=== PATIENT | female | born 1955 | race Caucasian/White ===

== ENCOUNTER → 2017-02-19 | Outpatient (CLI) | payer BC ==
--- NOTE | 2017-02-19 14:29 | MAMMOGRAPHY REPORT ---
BILATERAL DIGITAL DIAGNOSTIC MAMMOGRAM TOMOSYNTHESIS WITH CAD AND TARGETED BILATERAL ULTRASOUND: 2017 CLINICAL HISTORY: 61-year-old woman presents with a tender palpable lump in the 12:30 periareolar rig ht breast, which she describes as a small pea. Also overdue for annual bilateral screening mammograp hy. TECHNIQUE: Bilateral breast tomosynthesis in addition to standard 2D mammography was performed. Spot compression tomosynthesis left cc and MLO views were also obtained. Current study was also evaluate d with a Computer Aided Detection (CAD) system. COMPARISON: Comparison is made to exams dated: 02/22/2015 mammogram, 12/22/2013 ultrasound, 4 mammogram, 12/17/2013 mammogram, 10/09/2012 mammogram, and 06/01/2009 ultrasound - [facility]. BREAST COMPOSITION: There are scattered areas of fibroglandular density in both breasts. FINDINGS: A triangular palpable marker overlies the 12:30 anterior right breast, denoting the small l ump, smaller than AP, pointed out by the patient. No obvious new mammographic mass, asymmetry, area of distortion or calcifications are identified. No other new suspicious findings are identified in t he right breast. There is a subtle focal asymmetry in the retroareolar posterior left breast. On the 2-D views there is subtle focal asymmetry appears similar dating back to 2007, but there is possible associated archi tectural distortion on the corresponding tomosynthesis images. Therefore additional spot compression tomosynthesis views of the left breast were obtained which demonstrate persistent architectural dist ortion involving this 9 mm focal asymmetry in the central versus posterior retroareolar left breast. Further characterization with ultrasound was performed. No other suspicious masses, asymmetries, ar eas of distortion or other abnormalities are seen in the left breast. Targeted ultrasound was performed in the area of palpable lump pointed out by the patient, in the 12: 30 periareolar right breast, and in the 12:00 through 6:00 including the retroareolar left breast. I n the area of palpable concern pointed out by the patient in the 12:30 periareolar right breast, on p alpation, there is a tiny 4 mm mobile mass that appears superficial. On ultrasound, there is a small hypoechoic oval lesion with slight thickening of the dermis in the area of concern measuring 3.7 mm. This could represent an early forming or resolving epidermal inclusion cyst. No punctate and is id entified extending to the skin surface. There is no suspicious lesion deeper within the breast paren chyma. Throughout the left breast 11:00, 12:00, 1:00, retroareolar and 5:00 through 7:00 axes, no discrete s olid or cystic mass is identified. No definite sonographic correlate for the mammographic asymmetry with associated architectural distortion. This finding remains indeterminate and further characteriz ation with a stereotactic tomosynthesis guided biopsy is recommended. IMPRESSION: ACR BI-RADS CATEGORY 4: SUSPICIOUS, TARGETED ULTRASOUND ACR BI-RADS CATEGORY 4: SUSPICIO US 1. There is a possible early versus resolving epidermal inclusion cyst measuring 3.7 mm in the area of palpable painful concern in the 12:30 periareolar right breast. Given that this finding does not meet the sonographic criteria for a benign epidermal inclusion cyst, follow-up at resolution or in ap proximately 6 months is recommended. Also recommend continuation of conservative management with NSA IDs and hot compresses. 2. There is a 9 mm focal asymmetry with associated architectural distortion in the posterior retroar eolar versus central left breast, without sonographic correlate identified. Although the 2-D appeara nce appears somewhat similar dating back to 2007 suggesting this could represent a benign lesion such as a radial scar, given the persistent distortion in 2 planes on the spot compression tomosynthesis views, definitive characterization with a stereotactic tomosynthesis guided left breast biopsy is rec ommended. These results and recommendations were discussed with the patient at the time of the exam. Approximately 10% of breast cancers are not detected with mammography. A negative mammographic report should not delay biopsy if a clinically suggestive mass is present. Xiomara Zendejas M.D. ay/:02/19/2017 09:18:56 Curriculum Director: Shoshana ALVAREZ(Mark)(M), [facility] letter sent: Abnormal 4/5 BI-RADS Code: ACR BI-RADS Category 4: Suspicious Ultrasound BI-RADS: ACR BI-RADS Category 4: Suspici ous
== END | disposition home or self-care (01) ==
LOC: C.MAMM 08:15
PROVIDERS: ATTEND Physician Assistant
DX: N63.10 Unspecified lump in the right breast, unspecified quadrant (principal)

== ENCOUNTER → 2017-03-15 | Outpatient (CLI) | payer BC ==
--- NOTE | 2017-03-15 13:15 | Discharge Instructions ---
Discharge Instructions Procedure Procedure Date: Mar 15, 2017. Reason for visit: Left Distortion/Asymmetry. Discharge Discharge Date: Mar 15, 2017. Discharge Diagnosis: status post breast biopsy Instructions Activity Recommendations: Additional Limitations (see below) Return to School/Work: no limitations Recommended Home Diet: No Limitations Provider Instructions: ACTIVITY RECOMMENDATIONS: * No lifting, pushing, pulling or exercising the affected side for three days. RETURN TO SCHOOL/WORK: * You may return to work/school after the procedure, but do not perform any strenuous activities for 24 to 48 hours. MEDICATIONS: * Tylenol (two 325 mg) every four to six hours if needed for mild pain (if not allergic to Tylenol). DIET: * Resume previous diet. SPECIAL CARE INSTRUCTIONS: * Keep biopsy site dry for 24 hours. May shower after 24 hours, but do not soak (bathe) incision. * May remove Tegaderm (plastic patch) tomorrow AFTER showering. * Leave the steri-strips on for one week. Allow the steri-strips to fall off by themselves. If not off after one week, you may remove them. You may place a Bandaid crosswise over the strips, if desired. * Apply ice 10 minutes on and 10 minutes off as needed. * Wear a bra at bedtime to sleep more comfortably for 2-3 days. * Your referring physician should have the results after approximately 5 to 7 business days. * Call for unusual bleeding, fever, drainage, etc or if you have any questions call during normal business hours or after hours call Dr Danielle, . FOLLOW UP VISIT: Follow-up with Referring Physician as scheduled. Dom Perez Recommendations: Call your doctor if: * Temperature above 101 degrees * Pain not relieved by pain medicine ordered * There is increased drainage or redness from any incision * You have any unanswered questions or concerns. Your Doctors Instructions noted above were prepared by provider Dawn Danielle. Patient Signature Section: Patient Instructions Signature Page Nupur Gonzales Patient (or Guardian) Signature/Date: I have read and understand the instructions given to me by my caregivers. Caregiver/RN/Doctor Signature/Date: The above-named patient and/or guardian has received patient instructions on this date. + Original Patient Signature Page (only) stays with chart. Please make copy for patient.
--- NOTE | 2017-03-18 07:38 | MAMMOGRAPHY REPORT ---
STEREOTACTIC GUIDED BIOPSY LEFT BREAST: 03/15/2017 CLINICAL HISTORY: Focal architectural distortion in the left central breast. PATIENT CONSENT: The procedure, risks, benefits, and alternatives of stereotactic biopsy with clip pl acement were discussed with the patient, and verbal and written consent was obtained. A timeout was performed immediately prior to the procedure. PROCEDURE DESCRIPTION: With tomosynthesis stereotactic guidance, aseptic technique, and lidocaine as a local anesthetic (1% lidocaine to anesthetize the skin and 1% lidocaine with epinephrine to anesthe tize the deeper tissues), the focal architectural distortion in the left central breast was sampled m ultiple times with a 9-gauge vacuum-assisted biopsy needle (Imagiin.). The path of approach was m edial. A metallic marker clip was placed at the biopsy site. This was confirmed on postprocedure ma mmograms. Direct pressure was applied at the biopsy site and hemostasis was readily achieved. The p atient tolerated the procedure without complication. She was given wound care instructions. COMPARISON: Comparison is made to exams dated: 02/19/2017 ultrasound, 02/19/2017 mammogram, 02/22/2015 ma mmogram, 12/17/2013 mammogram, 10/09/2012 mammogram, and 12/09/2008 mammogram - [facility]. IMPRESSION: STEREOTACTIC GUIDED BIOPSY Tomosynthesis stereotactic-guided biopsy of focal architectural distortion in the left central breast , with clip placement. The patient will receive pathology results from her referring provider. Dawn Danielle M.D. ah/:03/15/2017 13:29:44 Picture Booker: Leeann ALVAREZ(Mark)(M), [facility]
--- NOTE | 2017-03-18 07:41 | MAMMOGRAPHY REPORT ---
UNILATERAL LEFT DIGITAL DIAGNOSTIC MAMMOGRAM TOMOSYNTHESIS: 03/15/2017 CLINICAL HISTORY: Status post left breast stereotactic biopsy. TECHNIQUE: Breast tomosynthesis in addition to standard 2D mammography was performed. Postprocedura l left CC and ML tomosynthesis images including C views were obtained. COMPARISON: Comparison is made to exams dated: 02/19/2017 ultrasound, 02/19/2017 mammogram, 02/22/2015 ma mmogram, 12/17/2013 mammogram, 10/09/2012 mammogram, and 12/09/2008 mammogram - [facility]. BREAST COMPOSITION: There are scattered areas of fibroglandular density in the left breast. FINDINGS: A new biopsy marker clip is seen at the site of the biopsied architectural distortion in t he left central breast. No significant postbiopsy hematoma is seen. IMPRESSION: POST PROCEDURE IMAGING FOR MARKER PLACEMENT New biopsy marker clip status post left breast stereotactic biopsy. Pathology results are pending. Approximately 10% of breast cancers are not detected with mammography. A negative mammographic report should not delay biopsy if a clinically suggestive mass is present. Dawn Danielle M.D. ah/:03/15/2017 13:37:48 Engine Dispatcher: Leeann ALVAREZ(R)(M), [facility] BI-RADS Code: Post Procedure Imaging For Marker Placement
== END | disposition home or self-care (01) ==
LOC: C.MAMM 12:11
PROVIDERS: ATTEND Physician Assistant
DX: R92.8 Other abnormal and inconclusive findings on diagnostic imaging of breast (principal)

== ENCOUNTER → 2017-04-22 | Outpatient (CLI) | payer BC ==
[~2017-04-22] MED LIST: ALTERIL PO; ASPCH81X PO; COQ10 PO; MULT-506 PO; NAPR-1169 PO; OMEG10007 PO; SENNTAB23 PO; VITAMIN D PO
== END | disposition home or self-care (01) ==
LOC: C.CPL 09:52
PROVIDERS: ATTEND Surgery
DX: Z01.818 Encounter for other preprocedural examination (principal); N63.0 Unspecified lump in unspecified breast

== ENCOUNTER → 2017-04-22 | Outpatient (CLI) | payer BC ==
[2017-04-22 10:14] LABS: BASO % 0.2 %; BASO ABS # 0.01 K/uL (0-0.2); EOS % 3.2 %; EOS ABS # 0.14 K/uL (0-0.5); HEMOGLOBIN 13.7 g/dL (12.0-16.0); IG# 0.01 K/uL (0.00-0.02); LYMPH % 40.7 %; LYMPH ABS # 1.76 K/uL (1.2-3.4); MEAN CELL VOLUME 96.9 fL (80-100); MEAN CORPUSCULAR HEMOGLOBIN 34.9 pg (25-34); MEAN CORPUSCULAR HGB CONC 36.1 g/dl (32-36); MEAN PLATELET VOLUME 8.8 fL (7.4-10.4); MONO % 5.3 %; MONO ABS # 0.23 K/uL (0.11-0.59); NEUT % 50.4 %; NEUT ABS # 2.17 K/uL (1.4-6.5); PLATELET COUNT 196 K/uL (130-400); RED CELL DISTRIBUTION WIDTH CV 12.7 % (11.5-14.5); RED CELL DISTRIBUTION WIDTH SD 43.3 fL (36.4-46.3); WHITE BLOOD COUNT 4.32 K/uL (4.8-10.8)
[2017-04-22 10:34] LABS: BLOOD UREA NITROGEN 16 mg/dl (7-18); CALCIUM 9.1 mg/dl (8.5-10.1); CARBON DIOXIDE 27 mmol/L (21-32); CREATININE 0.86 mg/dl (0.60-1.20); GLUCOSE 77 mg/dl (70-99); POTASSIUM 3.7 mmol/L (3.5-5.1); SODIUM 140 mmol/L (136-145)
== END | disposition home or self-care (01) ==
LOC: C.LAB1850 09:18
PROVIDERS: ATTEND Surgery
DX: Z01.818 Encounter for other preprocedural examination (principal); N63.0 Unspecified lump in unspecified breast; E78.2 Mixed hyperlipidemia

== ENCOUNTER → 2017-04-26 | Day surgery (SDC) | payer BC ==
[2017-04-12 11:37] VITALS: Ht 170.2 cm; Wt 77.3 kg
[~2017-04-26] VITALS: Ht 170.2 cm; Wt 77.3 kg
[~2017-04-26] MED LIST changes: +ATROPINE SULFATE 0.1 MG/ML 5ML SYR IV PRN; +BUPIVACAINE 0.5 % 5 MG/1 ML MPF 30ML VIAL ONE; +CEFAZOLIN 2000MG IV PUSH 15 ML IV SCH; +DEXAMETHASONE SOD INJ 4 MG/ML VIAL ONE; +EpHEDrine SULFATE 50MG/5ML SYR ONE; +EpHEDrine SULFATE INJ 50 MG/ML AMP IV PRN; +EpHEDrine SULFATE INJ 50 MG/ML AMP ONE; +FENTANYL CITRATE INJ 50 MCG/1 ML 2 ML VIAL IV PRN; +FENTANYL CITRATE INJ 50 MCG/1 ML 2 ML VIAL ONE; +GLYCOPYRROLATE INJ 0.2 MG/ML VIAL ONE; +LACTATED RINGER'S 1000ML 1,000 ML IV SCH; +LIDOCAINE HCL 1% 20 ML VIAL ONE; +LIDOCAINE HCL 2% 2 ML VIAL (20MG/ML) ONE; +MIDAZOLAM HCL 1 MG/ML 2ML VIAL ONE; +ONDANSETRON INJ 2 MG/ML 2 ML VIAL IV PRN; +ONDANSETRON INJ 2 MG/ML 2 ML VIAL ONE; +PROPOFOL IV EMULSION 10 MG/ML 20 ML VIAL IV ONE; +SODIUM CHLORIDE 0.9% 1000ML 1,000 ML IV SCH; +SODIUM CHLORIDE 0.9% INJ 10 ML VIAL ONE; +TRAM-10 PO; +TRAMADOL HCL 50 MG TAB PO SCH
--- NOTE | 2017-04-26 08:59 | History & Physical Bridge - SC ---
H&P Re-Evaluation Bridge Note: I have examined the patient, reviewed the History & Physical and in the interval since the performance of the History & Physical I have noted the following changes of clinical significance: No changes noted for Lt breast bx
--- NOTE | 2017-04-26 09:15 | Discharge Instructions-SurgCtr ---
Discharge Instructions Date of Service Apr 26, 2017. Visit Reason for Visit: Left Lesion Discharge Discharge Diagnosis / Problem: abnormal mammogram Discharge Goals Goal(s): Decrease discomfort, Improve function, Improve disease control Activity Recommendations Activity Limitations: as noted below Lifting Limitations: no more than 25 pounds Exercise/Sports Limitations: until after follow-up appointment May Resume Sexual Activity: when tolerated Shower/Bathe: keep incision dry (for 2 days- may shower over incision in 2 days ) Driving or Machine Use: resume 1 day after discharge Anesthesia . Post Anesthesia Instructions: If you have had General Anesthesia or IV Sedation: * Do not drive today. * Resume driving when surgeon permits. * Do not make important decisions or sign legal documents today. * Call surgeon for: 1. Temperature elevations greater than 101 degrees F. 2. Uncontrollable pain. 3. Excessive bleeding. 4. Persistent nausea and vomiting. 5. Medication intolerance (nausea, vomiting or rash). * For nausea and vomiting use only clear liquids such as: tea, soda, bouillon until nausea subsides, then gradually increase diet as tolerated. * If you have any concerns or questions, call your surgeon's office. If physician is unavailable and it is an emergency, call 911 or go to the nearest emergency room. . Instructions / Follow-Up Instructions / Follow-Up SPECIAL CARE INSTRUCTIONS: * Cover incisions and change daily for comfort/drainage. * Leave steri strips in place * May use ibuprofen for pain as tolerated. * Expect some swelling and bruising. Call your doctor if: * Temperature above 101 degrees * Pain not relieved by pain medicine ordered * There is increased drainage or redness from any incision * You have any unanswered questions or concerns [phone]. FOLLOW UP VISIT: If not already scheduled, please call the office for a follow-up visit. for next week- to remove suture knots OFFICE PHONE NUMBER: Dr. Porter Office Diet Recommendations Home Diet: resume previous diet Pending Studies Studies pending at discharge: no Medical Emergencies . Who to Call and When: Medical Emergencies: If at any time you feel your situation is an emergency, please call 911 immediately. . Non-Emergent Contact Non-Emergency issues call your: Primary Care Provider, Surgeon . . "Provider Documentation" section prepared by Jose Roberto Porter. .
--- NOTE | 2017-04-26 10:02 | [facility] Operative Report ---
Operative Report Operative Date Apr 26, 2017. Pre-Operative Diagnosis Left breast abnormal mammography Post-Operative Diagnosis Same as pre-op Procedure(s) Performed Left Breast Biopsy With Needle Localization Surgeon Crate Icer Surgeon(s) None Estimated Blood Loss 5ML Findings clip Specimens A.Left breast tissue Out of patient at 0943 Sent to breast care center Anesthesia Type General Complication(s) none Disposition Recovery Room / PACU I attest to the content of the Intraoperative Record and any orders documented therein. Any exceptions are noted below.
--- NOTE | 2017-04-26 10:31 | OPERATIVE REPORT ---
DATE OF OPERATION: 04/26/2017 NAME OF OPERATION: Needle localization left breast biopsy. PREOPERATIVE DIAGNOSIS: Radial scar. POSTOPERATIVE DIAGNOSIS: Same. STAFF SURGEON: Jose Roberto Porter MD. ANESTHESIA: LMA with general. DESCRIPTION OF PROCEDURE: The patient was brought in the operating room and placed on the operating table in supine position. Her left breast was prepped and draped in usual fashion. A needle had been placed medially. It traversed toward the retroareolar tissue deep down almost to the chest wall. Incision was made transversely medial to the entry of the needle carrying dissection down around the needle almost to the chest wall, excising the tissue with an additional piece deep centered over to the breast center, the clip was within the tissue. The tissue around the needle appeared to be relatively normal fatty tissue. Deep tissue was reapproximated using 2-0 plain catgut suture then the skin reapproximated using subcuticular 5-0 Monocryl with Steri-Strips and benzoin. Dressing applied and patient transferred to recovery room in stable condition. I attest to the content of the Intraoperative Record and any orders documented therein. Any exception s are noted below.
[2017-04-26 11:01] VITALS: TEMP 36.5
--- NOTE | 2017-04-26 11:10 | Anesthesia Progress Nt - [facility] ---
Anesthesia Post Op Note Date & Time Apr 26, 2017 at 11:10 Vital Signs Pain Intensity: 0 Vital Signs Past 12 Hours Date Time Temp Pulse Resp B/P (MAP) Pulse Ox O2 Delivery O2 Flow Rate FiO2 04/26/17 11:01 36.5 81 16 137/82 (100) 99 Room Air 04/26/17 10:59 83 2 04/26/17 10:59 81 2 96 04/26/17 10:59 83 2 04/26/17 10:59 81 2 96 04/26/17 10:56 135/72 04/26/17 10:56 135/72 04/26/17 10:54 81 0 96 04/26/17 10:54 81 0 04/26/17 10:54 81 0 04/26/17 10:54 81 0 96 04/26/17 10:53 82 1 04/26/17 10:53 81 1 94 04/26/17 10:51 36.6 83 12 141/77 97 Room Air 04/26/17 10:51 141/77 04/26/17 10:48 84 0 96 04/26/17 10:48 84 0 04/26/17 10:46 135/75 04/26/17 10:43 86 0 04/26/17 10:43 87 0 99 04/26/17 10:41 144/75 04/26/17 10:38 82 0 100 04/26/17 10:38 83 0 04/26/17 10:36 145/80 04/26/17 10:33 85 0 100 04/26/17 10:33 83 0 04/26/17 10:31 132/72 04/26/17 10:28 99 0 04/26/17 10:28 99 0 100 04/26/17 10:26 139/77 04/26/17 10:23 99 1 100 04/26/17 10:23 96 1 04/26/17 10:21 145/74 04/26/17 10:18 98 0 04/26/17 10:18 98 0 100 04/26/17 10:16 140/73 04/26/17 10:14 139/72 04/26/17 10:13 107 100 04/26/17 10:13 36.4 103 16 139/72 100 Mask 6 04/26/17 10:13 107 04/26/17 07:45 36.6 54 18 124/63 (83) 97 Room Air Notes Mental Status: alert / awake / arousable, participated in evaluation Pt Amnestic to Procedure: Yes Nausea / Vomiting: adequately controlled Pain: adequately controlled Airway Patency, RR, SpO2: stable & adequate BP & HR: stable & adequate Hydration State: stable & adequate Anesthetic Complications: no major complications apparent
[2017-04-26 11:24] VITALS: BP 143/84; PULSE 70; O2SAT 98
--- NOTE | 2017-04-26 13:55 | MAMMOGRAPHY REPORT ---
NEEDLE LOCALIZATION LEFT BREAST: 04/26/2017 CLINICAL HISTORY: Recent stereotactic biopsy of architectural distortion in the left central breast w hich yielded a radial scar on pathology. PROCEDURE DESCRIPTION: With imaging guidance, aseptic technique, and 1% lidocaine as the local anesth etic, the biopsy marker clip and associated architectural distortion in the left central breast was l ocalized with a 7.5 cm Ferrer II needle. The path of approach was medial. The biopsy marker clip a nd architectural distortion are located along the distal portion of the wire, just anterior to the ba rb. The needle was left in place. The patient became lightheaded during the procedure; the symptoms resolved after a few minutes after the patient was placed in a reclining position. COMPARISON: Comparison is made to exams dated: 03/15/2017 stereotactic biopsy, 03/15/2017 mammogram, 02/19 ultrasound, 02/19/2017 mammogram, 02/22/2015 mammogram, and 12/17/2013 mammogram - [facility]. IMPRESSION: NEEDLE LOCALIZATION Needle localization of the architectural distortion and associated biopsy marker clip in the left minda tral breast. Dawn Danielle M.D. /:04/26/2017 08:29:29 Telephone Solicitor Supervisor: Anabel ALVAREZ(Mark)(M), [facility]
--- NOTE | 2017-04-26 13:55 | MAMMOGRAPHY REPORT ---
SPECIMEN LEFT BREAST: 04/26/2017 CLINICAL HISTORY: Status post left breast surgical excision. COMPARISON: Comparison is made to exams dated: 03/15/2017 stereotactic biopsy, 03/15/2017 mammogram, 02/19 ultrasound, 02/19/2017 mammogram, 02/22/2015 mammogram, and 12/22/2013 ultrasound - [facility]. Findings: A radiograph was performed of the left breast surgical specimens. The localized biopsy mar ker clip and associated architectural distortion are seen within the specimen. The intact needle loc alization wire and needle are also present. IMPRESSION: SPECIMEN The imaged specimens contain the preoperatively-localized abnormality. Dawn Danielle M.D. ah/:04/26/2017 10:30:56 [place] Supervisor: Anabel ALVAREZ(Mark)(M), [facility]
== END | disposition home or self-care (01) ==
LOC: X.SURG 07:33
PROVIDERS: ATTEND Surgery
DX: D24.2 Benign neoplasm of left breast (principal); N60.22 Fibroadenosis of left breast; R92.8 Other abnormal and inconclusive findings on diagnostic imaging of breast; E78.00 Pure hypercholesterolemia, unspecified; I10 Essential (primary) hypertension; Z79.82 Long term (current) use of aspirin; Z79.899 Other long term (current) drug therapy; Z80.3 Family history of malignant neoplasm of breast; Z80.0 Family history of malignant neoplasm of digestive organs; Z82.2 Family history of deafness and hearing loss